=== PATIENT | female | born 1955 | race Caucasian/White ===

== ENCOUNTER 2024-06-26 05:49 | Emergency (ER) | payer MEDICARE ==
[~2024-06-26] VITALS: Ht 160 cm; Wt 65.8 kg
[2024-06-26 06:09] VITALS: PULSE 70; RESP 18; TEMP 98.3
[2024-06-26] MEDS ORDERED: NAPROXEN250 MG PO (07:43)
[2024-06-26 07:53] VITALS: BP 132/61; PULSE 71; RESP 14; O2SAT 100
== END 2024-06-26 07:58 | disposition home or self-care (01) ==
LOC: ER 05:54
DX: S93.492A Sprain of other ligament of left ankle, initial encounter (principal); M79.672 Pain in left foot; X50.1XXA Overexertion from prolonged static or awkward postures, initial encounter; Y92.89 Other specified places as the place of occurrence of the external cause; E11.9 Type 2 diabetes mellitus without complications; E03.9 Hypothyroidism, unspecified; K21.9 Gastro-esophageal reflux disease without esophagitis
CPT/HCPCS: 99283